=== PATIENT | female | born 1965 | race American Indian/Alaskan Native ===

== ENCOUNTER 2016-12-06 09:57 | Emergency (ER) | payer MEDICARE ==
--- NOTE | 2016-12-06 11:19 | Emergency Department Report ---
Chief Complaint: Headache Stated Complaint: HEADACHE/STOMACH/HOT FLASH Time Seen by Provider: 12/06/16 11:18 - HPI History of Present Illness: Patient here reports that she has headache morning. She said her headache is 8 out of 10. Patient also reports stomach pain and hot flashes. She says she's has been seeing a Stitch Cleaner since November and was told that she has a thyroid problem. She says she took medication temporarily I thyroid was back to normal and she is to see nurse care manager in April 2017. Ports nausea and denies any fever. Patient had hysterectomy. Blood pressure is 174/100. She says she gets headaches sometimes but it doesn't last long.Denies any vomiting. - ROS Review of Systems: All systems are negative unless stated in HPI above - Exam Vital Signs: Vital Signs 12/06/16 10:58 Temperature 99.0 F Pulse Rate 78 Blood Pressure 174/100 O2 Sat by Pulse 100 Oximetry Physical Exam: Gen: This is a 51-year-old female well-nourished well-developed nontoxic in appearance. CV: S1, S2. Regular rate and rhythm. Lungs:CTAB PSYCH:calm and relaxed Ruchi-Neurologic: GCS at 15, alert and oriented 3, speech is normal and fluid. Negative pronator drift. Normal reflexes. No Facial drooping. Gait is normal and bilateral hand collection administrator strong and equal. No motor or sensory deficit. MSE screening note: Focused history and physical exam performed. Due to findings the following was ordered:see [facility] ED Medical Decision Making - Medical Decision Making Medical decision making: Patient seen by provider in triage area. Appropriate protocol activated and patient to main ED to be seen by physician. ED Disposition for MSE Condition: Stable
[2016-12-06 11:58] LABS: Basophils % (Auto) 0.9 % (0.0-1.8); Hematocrit 42.5 % (30.3-42.9); Hemoglobin 14.1 gm/dl (10.1-14.3); Mean Corpuscular HGB Conc 33 % (30-34); Mean Corpuscular Hemoglobin 29 pg (28-32); Mean Corpuscular Volume 88 fl (79-97); Platelet Count 364 K/mm3 (140-440); Red Blood Count 4.84 M/mm3 (3.65-5.03); Red Cell Distribution Width 13.3 % (13.2-15.2); White Blood Count 10.6 K/mm3 (4.5-11.0)
[2016-12-06 12:17] LABS: Amylase 99 units/L (27-131); Lipase 27 units/L (13-60)
[2016-12-06 12:21] LABS: Alanine Aminotransferase 16 units/L (7-56); Albumin 4.5 g/dL (3.9-5); Albumin/Globulin Ratio 1.1 %; Alkaline Phosphatase 110 units/L (35-129); Bilirubin,Total 0.5 mg/dL (0.1-1.2); Blood Urea Nitrogen 12 mg/dL (7-17); Calcium 9.7 mg/dL (8.4-10.2); Carbon Dioxide 28 mmol/L (22-30); Chloride 94.6 mmol/L (98-107); Glucose 106 mg/dL (65-100); Potassium 3.9 mmol/L (3.6-5.0); Sodium 137 mmol/L (137-145); Total Protein 8.5 g/dL (6.3-8.2)
[2016-12-06 12:22] LABS: Anion Gap 18 mmol/L
[2016-12-06 13:27] LABS: Bilirubin,Urine NEG (Negative); Blood,Urine SM (Negative); Ketones,Urine NEG (Negative); Leukocyte Esterase,Urine SM (Negative); Mucus,Urine FEW /HPF; Nitrite,Urine NEG (Negative); Protein,Urine <15 mg/dL mg/dL (Negative); Urobilinogen,Urine < 2.0 mg/dL (<2.0)
[2016-12-06] MEDS ORDERED: NACL 0.9% 1000 ML 1,000 ML IV ONE (13:42)
[2016-12-06] MEDS ORDERED: VALIUM IV ONE (13:42)
[2016-12-06] MEDS ORDERED: REGLAN IV ONE (13:42)
[2016-12-06] MEDS ORDERED: BENADRYL IV ONE (13:42)
[2016-12-06] MEDS ORDERED: TYLENOL PO ONE (13:44)
[2016-12-06] MEDS ORDERED: TORADOL IV ONE (13:44)
--- NOTE | 2016-12-06 15:08 | Cat Scan Report ---
The crania CT without contrast. Findings: The brain parenchyma appears normal. There is no evidence of acute hemorrhage or infarct. The posterior fossa is normal. The ventricles are normal in size and contour. There are no masses or extra-axial collections. A caval septum pellucidum is noted. The calvarium is normal. There is mucoperiosteal thickening in the ethmoid sinuses, and there is a round soft tissue density in both the right maxillary sinus and in the left sphenoid sinus. Impression: No intracranial abnormalities. 2. Chronic sinus disease.
--- NOTE | 2016-12-06 15:25 | Emergency Department Report ---
HPI - General Chief Complaint: Headache Time Seen by Provider: 12/06/16 11:18 - HPI HPI: The patient is a 51-year-old female who presents for evaluation of headache. The patient reports constant severe headache awakening since this morning, nearly 6 hours prior to my evaluation, constant since onset, 10 out of 10 in severity, throbbing in quality, generalized and bilateral. She reports associated photophobia. The patient denies fever, head injury, neck pain, neck stiffness, vision or hearing changes, smell or taste changes, paresthesias, facial drooping, slurred speech, seizure-like activity, urine or bowel incontinence or retention, or other focal neurological deficit. ED Past Medical Hx - Past Medical History Hx Hypertension: Yes Hx Deep Vein Thrombosis: Yes Hx GERD: Yes Hx Asthma: Yes Additional medical history: chronic neck/back pain, Hypothyroidism - Surgical History Additional Surgical History: tubal ligation. hysterectomy. disc from neck removed - Social History Smoking Status: Never Smoker Substance Use Type: None - Medications Home Medications: Home Medications Medication Instructions Recorded Confirmed Last Taken Type Hydrochlorothiazide [Hctz] 25 mg PO QDAY 08/05/13 10/14/16 08/05/13 10:00 History Dicyclomine [Bentyl] 10 mg PO QID PRN #20 capsule 10/14/16 Unknown Rx Famotidine [Pepcid] 20 mg PO QDAY #30 tablet 10/14/16 Unknown Rx Ondansetron [Zofran Odt] 4 mg PO QID PRN #20 tab.rapdis 10/14/16 Unknown Rx Cyclobenzaprine HCl [Flexeril 5 MG 5 mg PO Q8HR PRN #10 tab 12/06/16 Unknown Rx TAB] Ibuprofen [Motrin] 800 mg PO Q8HR PRN #14 tablet 12/06/16 Unknown Rx ED Review of Systems ROS: Stated complaint: HEADACHE/STOMACH/HOT FLASH Other details as noted in HPI Constitutional: denies: fever ENT: denies: throat or neck pain Respiratory: denies: cough, shortness of breath Cardiovascular: denies: chest pain Endocrine: denies unexplained weight loss or gain Gastrointestinal: denies: abdominal pain, nausea Genitourinary: denies: dysuria Musculoskeletal: denies: leg swelling Skin: denies: rash Neurological: reports headache Hematological/Lymphatic: denies: easy bleeding or easy bruising Psych: denies sadness or hopelessness Physical Exam - Physical Exam Vital Signs: Vital Signs 12/06/16 10:58 Temperature 99.0 F Pulse Rate 78 Blood Pressure 174/100 O2 Sat by Pulse 100 Oximetry Physical Exam: General: well-nourished, well-developed, no acute distress Head: Normocephalic, atraumatic Eyes: normal sclera, PERRL, EOM intact ENT: Mucous membranes are pale and dry Neck: No neck stiffness, no cervical adenopathy Respiratory: Breath sounds equal bilaterally, no wheezing, rales, or rhonchi Cardio: S1 and S2 present, no murmurs, rubs, gallops, capillary refill is delayed Abdomen: Normoactive bowel sounds, soft abdomen, no rigidity, no guarding or rebound tenderness Chest WALL/Back: No tenderness to palpation of the chest wall, no CVA tenderness with percussion Musc: No pitting edema Skin: No rash Neuro: alert oriented x4, normal cognition, speech normal,no facial drooping, no uvula or tongue deviation on protrusion, no deficit with rotation of neck or shoulder shrug, no obvious gross motor deficit in the upper or lower extremities with flexion or extension at the shoulder, elbow, wrist, hip, knee, or ankle bilaterally, no obvious gross sensation deficit, 2+ symmetric reflexes on DTR testing, no coordination deficit with [id number]-im-[id number] or [id number]-ld-[id number] testing, romberg negative, patient able to to ambulate without abnormal gait Psych: Normal affect ED Course Vital Signs 12/06/16 10:58 Temperature 99.0 F Pulse Rate 78 Blood Pressure 174/100 O2 Sat by Pulse 100 Oximetry ED Medical Decision Making - Lab Data Result diagrams: 12/06/16 11:50 12/06/16 11:50 - Medical Decision Making The patient was seen and examined by myself. The patient is placed on a account support specialist and continuous pulse ox. On initial evaluation, the patient was found to be in no distress. As there are no neuro deficits or other findings on examination concerning for acute intracranial disease process, and as the patient states that symptoms are consistent with previous headaches, a CAT scan of the head will not be obtained at this time. IV access is established and the patient is given IV Reglan, Benadryl, and IV Toradol for headache. The patient was reevaluated and reported that their symptoms were markedly improved. The patient is stable for discharge with outpatient follow-up. The patient is given follow-up and return instructions. The patient expressed understanding and agreed with the plan. The patient is discharged in stable condition. Critical care attestation.: If time is entered above; I have spent that time in minutes in the direct care of this critically ill patient, excluding procedure time. ED Disposition Clinical Impression: Acute non intractable tension-type headache, Dehydration Disposition: DISCHARGED TO HOME OR SELFCARE Is pt being admited?: No Does the pt Need Aspirin: No Condition: Stable Instructions: Acute Headache (ED) Referrals: PRIMARY CARE, [Primary Care Provider] - 3-5 Days Time of Disposition: 15:21
[2016-12-06 16:26] VITALS: BP 139/86
== END 2016-12-06 16:27 | disposition home or self-care (01) ==
LOC: ED 09:57
DX: G44.209 Tension-type headache, unspecified, not intractable (principal); E86.0 Dehydration; I10 Essential (primary) hypertension; K21.9 Gastro-esophageal reflux disease without esophagitis; J45.909 Unspecified asthma, uncomplicated; E03.9 Hypothyroidism, unspecified; Z98.51 Tubal ligation status; Z90.710 Acquired absence of both cervix and uterus
CPT/HCPCS: 36415; 70450; 80053; 81001; 82150; 83690; 84443; 85025; 96361; 96374; 96375; 99284; J1200; J1885; J2765; J7030

== ENCOUNTER 2019-11-12 09:07 | Outpatient (CLI) | payer MEDICARE ==
--- NOTE | 2019-11-12 14:43 | Mammography Report ---
DIGITAL SCREENING MAMMOGRAM WITH CAD, 11/12/2019 INDICATION: Routine screening mammography. TECHNIQUE: Digital bilateral 2D mammography was obtained in the craniocaudal and mediolateral obliq ue projections. This examination was interpreted with the benefit of Computer-Aided Detection analysi s. COMPARISON: 02/16/2014 FINDINGS: Breast Density: There are scattered areas of fibroglandular density. There is no evidence of dominant mass, suspicious calcifications or architectural distortion in eithe r breast. IMPRESSION: No mammographic evidence of malignancy. Follow up recommendation: Routine yearly BI-RADS Category 1: Negative. A "normal" or negative report should not discourage follow up or biopsy of a clinically significant f inding. A written summary of these findings will be mailed to the patient. The patient will be entered into a mammography reporting system which will generate a reminder letter for the patient's next appointmen t at the appropriate interval. The [employer] recommends yearly mammograms starting at age 40 and continuing as l jonathan as a woman is in good health. Breast MRI is recommended for women with an approximate 20-25% or greater lifetime risk of breast cancer, including women with a strong family history of breast or ova patti cancer or who have been treated for Hodgkin's disease. Signer Name: Tristian Streeter MD Signed: 11/12/2019 2:38 PM Workstation Name: [id number]
== END 2019-11-12 09:08 | disposition home or self-care (01) ==
LOC: MAMMO 09:07
PROVIDERS: ATTEND Hospitalist
DX: Z12.31 Encounter for screening mammogram for malignant neoplasm of breast (principal)
CPT/HCPCS: 77067